=== PATIENT | female | born 1985 | race Caucasian/White ===

== ENCOUNTER → 2020-04-25 10:52 | Outpatient (CLI) | payer OTHER, MEDICAID, SELFPAY ==
[2020-04-25 12:59] LABS: COVID19 -Nasal RAPID Negative (Negative)
== END ==
PROVIDERS: Visit Provider Physical Medicine & Rehabilitation
DX: Z01.812 Encounter for preprocedural laboratory examination (principal); Z20.828 Contact with and (suspected) exposure to other viral communicable diseases
CPT/HCPCS: 87635; C9803

== ENCOUNTER 2020-04-26 13:26 | Outpatient (CLI) | payer OTHER, MEDICAID, SELFPAY ==
[2020-04-26] VITALS (10 sets, daily range): BP systolic 115–139; BP diastolic 72–83; PULSE 76–91; RESP 13–18; TEMP 36.3; O2SAT 95–99
--- NOTE | 2020-04-26 13:29 | DI.RAD.S_ITS ---
PROCEDURE: PAIN L/S FACET INJ/BLK 1ST SALEEM COMPARISON: None. INDICATIONS: SPONDYLOSIS FINDINGS: Fluoroscopic spot filming was performed to verify placement of spinal needles at the L4-L5, L5-S1 level(s), as labeled on the films. Appropriate location(s) of the needle tip(s) was confirmed by injection of iodinated contrast. Dictated by: Iftikhar Carranza M.D. on 04/26/2020 at 15:25 Approved by: Iftikhar Carranza M.D. on 04/26/2020 at 15:25
[2020-04-26] MEDS: fentaNYL 100 MCG/2 ML INJ 50 MCG IV (14:23)
[2020-04-26] MEDS: MIDAZOLAM 5 MG/5 ML VIAL IV (14:23)
[2020-04-26] MEDS: LIDOCAINE 1% 20 ML 10 ML INJ (14:27)
[2020-04-26] MEDS: IOPAMIDOL 15 ML VIAL 3 ML INJ (14:27)
[2020-04-26] MEDS: BETAMETHASONE 30 MG/5 ML MDV 12 MG INJ (14:28)
[2020-04-26] MEDS: BUPIVACAINE 0.5% (PF) VIAL 5 ML INJ (14:28)
--- NOTE | 2020-04-26 14:37 | P.PCN_ITS ---
Date/Time/Diagnoses Date of procedure: 04/26/20 Time of procedure: 14:38 Pre-procedure diagnosis: 1. FACET ARTHROPATHY 2. AXIAL LBP 3. MULTILEVEL DDD Post-procedure diagnosis: same Procedure Notes Procedure: 1. FLUOROSCOPICALLY GUIDED CONTRAST CONTROLLED FACET JOINT INJECTIONS BILATERAL L4/5, L5/S1 Indications: Gladys is referred for treatment of Axial LBP Physician: Abdoul Balbuena Total Fluoroscopy time (seconds): 12 Total sedation minutes: 12 Complications: none Procedure in detail & Post-procedure care: FINDINGS Multilevel Facet Arthropathy with Clinically significant axial LBP DESCRIPTION OF PROCEDURE Fluoroscopically guided, contrast-controlled bilateral L4/5, L5/S1 facet joint injections. Following review of allergy and review of potential side effects and co mplications, including, but not necessarily limited to, infection, allergic reaction, local tissue breakdown, stroke, temporary or permanent nerve injury, paralysis, and possible , the patient indicated that the patient understood and agreed to proceed. An informed consent document was signed by the patient, witnessed by a nurse, and placed in the patient's chart. Additionally, other treatment options including medications, modalities, and physical therapy were reviewed with the patient. After review of previous anaesthesic history and IV conscious sedation the patient was deemed safe to proceed with today?s procedure with IV conscious sedation as ASA class II designation. Safety time-out was performed to confirm patient ID, procedure to be performed and site of procedure. IV sedation was accomplished with a combination of 5mg of Versed and 100mcg of Fentanyl was administered by the RN after DO order, titrated to patient comfort during the course of the procedure while the patient remained responsive to all verbal commands In the prone position, following sterile prep and drape of the lumbar region, the posterior aspect of the L4/5, L5/S1 facet joints were identified fluor oscopically. The skin was anesthetized via a 25-gauge 1.5inch needle with 1% lidocaine solution into the corresponding facet joints. At this point, a 22- gauge 3.5-inch spinal needle was atraumatically introduced and advanced under fluoroscopic guidance into the corresponding facet joints. Following negative aspiration, injections of approximately 0.2cc of Isovue 200 confirmed interarticular placement without vascular uptake. The identical procedure was then performed at the L4/5, L5/S1 facet joints on the left. Radiological data, including multiple fluoroscopic views of the lumbosacral spine, reveal a spinal needle at the L4/5, L5/S1 facet joints bilaterally. Subsequent views show flow of contrast material both superiorly and inferiorly within the joint space without vascular or intrathecal uptake. At this point, a total of 0.5cc including a mixture of 0.25cc Marcaine and 0.25cc betamethasone was injected without complication into each of the corresponding facet joints. The patient tolerated the procedure well without signs or symptoms of complications prior to transfer to the recovery area continued monitoring without incident. The patient was then transferred to the recovery area where they were observed for an appropriate period of time after the injection. The patient reported a VAS score of 7 prior to the procedure and a post- procedure VAS of 0. POST OP INSTRUCTIONS The patient was provided a Pain Log to continue to record their response to the target-specific procedure prior to follow-up visit with their referring physicia n. Additionally, specific post-injection care instructions and a contact number to our office were provided if concerns arise regarding possible complications associated with the procedure are suspected.
== END 2020-04-26 15:05 | disposition home or self-care (01) ==
LOC: RAD 13:28
PROVIDERS: Referring Provider Physical Medicine & Rehabilitation; Visit Provider Physical Medicine & Rehabilitation
DX: M47.816 Spondylosis without myelopathy or radiculopathy, lumbar region (principal); M47.817 Spondylosis without myelopathy or radiculopathy, lumbosacral region; M54.5 Low back pain; M51.36 Other intervertebral disc degeneration, lumbar region; M51.37 Other intervertebral disc degeneration, lumbosacral region
CPT/HCPCS: 64493; 64494; 99152; J0702; J2250; J3010

== ENCOUNTER → 2020-07-13 10:16 | Outpatient (CLI) | payer OTHER, MEDICAID, SELFPAY ==
--- NOTE | 2020-07-13 10:18 | DI.RAD.S_ITS ---
PROCEDURE: XR LUMBAR SPINE MIN 4V INDICATIONS: back pain TECHNIQUE: 5 views of the lumbar spine were acquired, including bilateral oblique views. COMPARISON: None. FINDINGS: Bones: 5 nonrib-bearing vertebrae are present. There is normal bony alignment. No vertebral body compression fractures. No suspicious bony lesions. Soft tissues: Overlying bowel gas pattern is normal. No suspicious soft tissue calcifications. Oblique images: No pars defects. IMPRESSION: There is a [id number] degree of facet osteoarthritis at L5-S1, but no subluxation. A definite source of new back pain is not identified. No compression fracture found. Dictated by: Rad Khan M.D. on 07/13/2020 at 11:15 Approved by: Rad Khan M.D. on 07/13/2020 at 11:16
== END ==
PROVIDERS: Referring Provider Physical Medicine & Rehabilitation; Visit Provider Physical Medicine & Rehabilitation
DX: M47.817 Spondylosis without myelopathy or radiculopathy, lumbosacral region (principal); M47.816 Spondylosis without myelopathy or radiculopathy, lumbar region; M51.26 Other intervertebral disc displacement, lumbar region
CPT/HCPCS: 72110; 99213

== ENCOUNTER → 2020-08-08 14:04 | Outpatient (CLI) | payer OTHER, MEDICAID, SELFPAY ==
[2020-08-08 16:34] LABS: COVID19 -Nasal RAPID Negative (Negative)
== END ==
PROVIDERS: Visit Provider Physical Medicine & Rehabilitation
DX: Z20.822 Contact with and (suspected) exposure to COVID-19 (principal)
CPT/HCPCS: 87635; C9803

== ENCOUNTER 2020-08-09 12:45 | Outpatient (CLI) | payer OTHER, MEDICAID, SELFPAY ==
[2020-08-09] VITALS (9 sets, daily range): BP systolic 100–122; BP diastolic 54–77; PULSE 65–90; RESP 12–19; TEMP 36.6; O2SAT 95–100
--- NOTE | 2020-08-09 12:48 | DI.RAD.S_ITS ---
PROCEDURE: PAIN L/S TRANSFORAMINAL INJECT INDICATIONS: SPONDYLOSIS COMPARISON: None. FINDINGS: Fluoroscopic spot filming was performed to verify placement of spinal needles at the left L4-L5 neural foramen level(s), as labeled on the films. Appropriate location(s) of the needle tip(s) was confirmed by injection of iodinated contrast. IMPRESSION: Access needle is at the left L4-L5 neural foramen. Dictated by: Chaya Yoder MD, PhD on 08/09/2020 at 14:38 Approved by: Chaya Yoder MD, PhD on 08/09/2020 at 14:39
[2020-08-09] MEDS: fentaNYL 100 MCG/2 ML INJ 50 MCG IV (13:44)
[2020-08-09] MEDS: DEXAMETHASONE 10 MG/ML VIAL 20 MG INJ (13:49)
[2020-08-09] MEDS: methylPREDNISolone acetate 80 MG/ML VIAL INJ (13:49)
[2020-08-09] MEDS: IOPAMIDOL 15 ML VIAL 3 ML INJ (13:50)
[2020-08-09] MEDS: BUPIVACAINE 0.25% (PF) VIAL 2 ML INJ (13:50)
[2020-08-09] MEDS: MIDAZOLAM 5 MG/5 ML VIAL IV (13:52)
[2020-08-09] MEDS: BUPIVACAINE 0.5% (PF) VIAL 10 ML INJ (13:52)
--- NOTE | 2020-08-09 14:03 | P.PCN_ITS ---
Date/Time/Diagnoses Date of procedure: 08/09/20 Time of procedure: 14:03 Pre-procedure diagnosis: 1. FORAMINAL STENOSIS WITH LE SYMPTOMS Post-procedure diagnosis: same Procedure Notes Procedure: 1. FLUOROSCOPICALLY GUIDED CONTRAST CONTROLLED TRANSFORAMINAL EPIDURAL STEROID INJECTION - LEFT L4/5 Indications: Gladys is referred for treatment of Foraminal Stenosis with Left LE Symptoms Physician: Abdoul Balbuena Total Fluoroscopy time (seconds): 9 Total sedation minutes: 9 Complications: none Procedure in detail & Post-procedure care: FINDINGS Foraminal Nerve Root Compression secondary to disc disease and facet hypertrophy DESCRIPTION OF PROCEDURE Following review of allergy and review of potential side effects and complications, including, but not necessarily limited to, infection, allergic reaction, local tissue breakdown, stroke, temporary or permanent nerve injury, paralysis, and possible , the patient indicated that the patient understood and agreed to proceed. An informed consent document was signed by the patient, witnessed by a nurse, and placed in the patient's chart. Additionally, other treatment options including medications, modalities, and physical therapy were reviewed with the patient. After review of previous anaesthesic history and IV conscious sedation the patient was deemed safe to proceed with today?s procedure with IV conscious sedation as ASA class II designation. Safety time-out was performed to confirm patient ID, procedure to be performed and site of procedure. IV sedation was accomplished with a combination of 8mg of Versed and 50mcg of Fentanyl administered by the RN after DO order, titrated to patient comfort during the course of the procedure while the patient remained responsive to all verbal commands In the prone position following sterile prep and drape of the lumbar region, the left L4/5 posterior neuroforamen was identified fluoroscopically. The skin was anesthetized via a 25-gauge 1.5-inch needle with 1% lidocaine solution. At this point, a 22-gauge 5-inch spinal needle was atraumatically introduced and advanced under fluoroscopic guidance through the posterior left L4/5 neuroforamen to approximately the anterior aspect of the canal. Depth was confirmed on lateral view. Following negative aspiration, injection of approximately 1.5 cc of Isovue 200 under live fluoroscopy in the AP view confirmed excellent flow along the nerve root, into the epidural space without vascular or intrathecal uptake observed Radiological data, including multiple fluoroscopic views of the lumbosacral spine, reveal a spinal needle at the left L4/5 posterior neuroforamen. Subsequent views show flow of contrast material flowing superiorly and inferiorly along the nerve root confirming epidural flow. Subsequently, a test dose of 1.5 cc of 1% lidocaine solution was administered and patient was observed for two minutes for signs or symptoms of complications, including abdominal pain, shortness of breath, bilateral upper or lower extremity weakness, nausea and vomiting, prior to steroid injection. At this point, a total of 3cc or 20mg of dexamethasone and 80mg of depo-medrol was injected without incident. The procedure tolerated the procedure well without signs or symptoms of complications prior to transfer to the recovery area continued monitoring without incident. The patient was then transferred to the recovery area where they were observed for an appropriate time after the injection. The patient reported a VAS score of 7 prior to the procedure and a post- procedure VAS of 0. POST OP INSTRUCTIONS The patient was provided a Pain Log to continue to record their response to the target-specific procedure prior to follow-up visit with their referring physician. Additionally, specific post-injection care instructions and a contact number to our office were provided if concerns arise regarding possible complications associated with the procedure are suspected.
== END 2020-08-09 14:25 | disposition home or self-care (01) ==
LOC: RAD 12:47
PROVIDERS: Referring Provider Physical Medicine & Rehabilitation; Visit Provider Physical Medicine & Rehabilitation
DX: M48.061 Spinal stenosis, lumbar region without neurogenic claudication (principal); M51.16 Intervertebral disc disorders with radiculopathy, lumbar region
CPT/HCPCS: 64483; J0702; J1040; J1100; J2250; J3010

== ENCOUNTER 2020-09-20 17:46 | Emergency (ER) | payer OTHER, MEDICAID, SELFPAY ==
[2020-09-20 17:48] VITALS: BP 139/82; PULSE 95; RESP 20; TEMP 36.6; O2SAT 99
--- NOTE | 2020-09-20 18:46 | ED.BACK ---
HPI - Back Pain/Injury General Chief Complaint: Back Pain/Injury Stated Complaint: BACK PAIN Time Seen by Provider: 09/20/20 18:46 Source: patient History of Present Illness HPI Narrative: 34-year-old woman with a history of a back injury 8 years ago and intermittent issues with chronic back pain since. In the last 9 months it has gotten dramatically worsened she has seen Dr. Balbuena, ammunition assembly laborer with epidural steroid injections most recently in July of this year. She found that the injections were not helpful. She is followed by a primary care clinic at [facility]. He has been managing her pain with ibuprofen and Tylenol and has been told cut back as she clearly was using excessive amounts of both. She is not on any pain modulating medications. Of note she also reports working 2 full-time jobs with a 7:00 p.m. to 7:00 a.m. schedule and then an 8-5 scheduled. She states that she ?sleeps every once in a while if she can?. She does note that over the last 4 days her pain has dramatically increased. She called her ammunition assembly laborer and stated that her baseline pain is gone from an 8 to a 10 in he recommended she come to the emergency department. She notes that she has to lean forward slightly to do with the pain and can not get comfortable supine standing or sitting which is an unusual change for her she notes she does have chronic urinary incontinence but has been a bit worse over the last couple of days no change to bowel and no perineal numbness. She describes radicular pain around the right hip and a sense that her leg is going to give out but no actual weakness, paresthesia or numbness at this time. She describes no fevers or cough. No abdominal pain or flank pain. She does not note any localize rashes but does note that she has significant muscle spasms and ?bumps? in the musculature lateral to the lumbar spine. She has tried topical pain relievers as well as lidocaine patches neither with much success. Related Data Previous Rx's Medication Instructions Recorded diazepam 10 mg tablet 10 mg PO .COMPLEX PRN #10 tab 07/13/20 oxycodone-acetaminophen 1 tab PO Q6H PRN 3 Days #12 tab 09/20/20 Allergies Allergy/AdvReac Type Severity Reaction Status Date / Time Penicillins Allergy Unknown Verified 07/13/20 11:16 Sulfa (Sulfonamide Allergy Unknown Unverified 07/13/20 11:16 Antibiotics) [SULFA (SULFONAMIDE ANTIBIOTICS)] Review of Systems Review of Systems Narrative: Remainder of complete review of systems is otherwise unremarkable except for that included in the HPI. Patient History Medical History Facet arthropathy, lumbar Herniated nucleus pulposus, L4-5 Social History Smoking Status: Former smoker Smoking Status: Former smoker Exam Narrative Exam Narrative: General: Healthy appearing, in no acute distress. Able to give a complete and coherent history. Well-nourished well-developed HEENT: Moist mucous membranes, normal sclera with reactive pupils, Respiratory: Lungs are clear to auscultation, no wheezing no rales no rhonchi. Full and symmetrical air movement Cardiac: Regular rate and rhythm no murmurs no bruits Skin: Warm and dry, no rashes Neurologic: Grossly neurologically intact with no obvious asymmetries or abnormalities. No perineal numbness. No lower extremity paresthesia. She is able to sit up move and participate with exam with minimal difficulty. Extremities: No trauma, well perfused Psych: Cooperative, appropriate insight and affect Initial Vital Signs Initial Vital Signs: Vital Signs Temperature 97.8 F 09/20/20 17:48 Pulse Rate 95 H 09/20/20 17:48 Respiratory Rate 20 09/20/20 17:48 Blood Pressure 139/82 09/20/20 17:48 Pulse Oximetry 99 09/20/20 17:48 Course Orders Ordered: Discontinued Medications Ketorolac Tromethamine (Ketorolac 30 Mg/Ml Vial) 30 mg IM NOW ONE Stop: 09/20/20 19:12 Oxycodone/Acetaminophen (Oxycodone/Acetaminophen 5/325 Tablet) 1 tab PO NOW ONE Stop: 09/20/20 19:12 Vital Signs Vital signs: Vital Signs - 8 hr 09/20/20 17:48 Temperature 97.8 F Pulse Rate 95 H Respiratory Rate 20 Blood Pressure 139/82 Pulse Oximetry 99 MDM - Back Pain/Injury MDM Narrative Medical decision making narrative: 34-year-old woman with acute exacerbation of her chronic back pain. Last MRI was approximately 6 months ago. Myriad of other issues including the fact that she has 6 children and 2 jobs with scheduled 21 hours of work per day. She has seen Dr. Balbuena, physiatry and has had epidural injections which have not been effective. She has not used narcotics for her acute pain however at this point, she is not able to sit clear stand and most importantly, is not able to sleep even if permitted the time to do so. There is no recent trauma and no current evidence of cauda equina syndrome or epidural abscess. No zoster or complicating skin abnormalities. We talked about short course of narcotics for acute exacerbation of pain have this was inappropriate for long-term use but it may be appropriate for the next 1-2 days. She does have a follow-up scheduled with her ammunition assembly laborer in 3 days. At this point she is safe for home discharge Discharge Plan Departure Patient Disposition: Home Clinical Impression: Acute exacerbation of chronic low back pain, Problems related to lack of adequate sleep Instructions: DI for Low Back Pain Activity Restrictions/Additional Instructions: Thank you for coming in today It sounds like you are in an incredibly frustrating position and they increased back pain is only adding over to your frustrations. At this time, there does not appear to be a life-threatening explanation for the significant pain increase. I suspect that your chronic sleep deprivation is only adding to the pain. I have given you a shot of Toradol and a single tablet of Percocet to try and help with the pain this evening so the your able to get some sleep. We had a nice discussion regarding the use of narcotics and chronic back pain and how it is inappropriate for chronic management but does have a role for short periods for severe acute exacerbations like you are experiencing. Please keep your appointment with Dr. Balbuena at the end of this week Regarding having 2 full-time jobs and scheduled 21 work hours a day, this is unsafe and unhealthy. If you want more information regarding how important sleep is in healthy function of bodies, dealing with chronic pain and healing overall, I encourage you to read anything by Dr. Eleazar Jewell. His book, Why We Sleep: Unlocking the Power of Sleep and Dreams is excellent. If you do not have time for reading or listening to a book, consider pod casts. If you do a search for Eleazar Jewell there are a number of popular pod casts that have interviewed him recently. If nothing else, it can help keep you awake while you are driving to and from work. I wish you the very best. Prescriptions: New oxycodone-acetaminophen 5-325 mg tablet 1 tab PO Q6H PRN (Reason: pain) 3 Days Qty: 12 RF: 0 No Action diazepam [Valium] 10 mg tablet 10 mg PO .COMPLEX PRN (Reason: sedation) Qty: 10 RF: 0
[2020-09-20] MEDS: OXYCODONE/ACETAMINOPHEN 5/325 TABLET 1 TAB PO (19:33)
[2020-09-20] MEDS: KETOROLAC 30 MG/ML VIAL IM (19:33)
[2020-09-20 19:40] VITALS: BP 131/86; RESP 16; O2SAT 98
== END 2020-09-20 19:40 | disposition home or self-care (01) ==
PROVIDERS: Emergency Provider Emergency Medicine
DX: M54.5 Low back pain (principal); Z72.820 Sleep deprivation
CPT/HCPCS: 96372; 99283; J1885